=== PATIENT | female | born 1945 | race Caucasian/White ===

== ENCOUNTER 2019-03-09 14:08 | Inpatient (IN) | payer OTHER ==
[~2019-03-09] VITALS: Ht 162.6 cm; Wt 91.7 kg
[2019-03-09 14:33] VITALS: BP_SYST 125
--- NOTE | 2019-03-09 14:35 | NUR ---
Placed in room 08 . Placed on cardiac rehabilitation specialist, blood pressure machine and pulse oximeter. To gown for exam. Side rails up.
--- NOTE | 2019-03-09 14:36 | NUR ---
Pt brought by family members,A&Ox4, pt states she felt disoriented this am, intact ROM , intact speech, no facial drop or blurred visin noted, skin pink and warm, cap refill <3, respirations even and unlabored, pt follows commands.
--- NOTE | 2019-03-09 14:40 | NUR ---
Dr Lopez at bedside examining patient.
[2019-03-09] MEDS ORDERED: ACETAMINOPHEN 500 MG TABLET PO ONE (16:00)
[2019-03-09 16:01] LABS: HEMATOCRIT 31.3 % (36-48); HEMOGLOBIN 10.5 g/dL (12.0-16.0); MEAN CORPUSCULAR HEMOGLOBIN 33 pg (27-31); MEAN CORPUSCULAR HGB CONC 34 % (32-36); MEAN CORPUSCULAR VOLUME 97 fL (79.0-98.0); PLATELET COUNT (AUTO) 166 K/uL (130-430); RED BLOOD CELL COUNT(AUTO) 3.23 MIL/uL (4.2-6.2); RED CELL DISTRIBUTION WIDTH 12.7 % (9.0-15.0); WHITE BLOOD COUNT (AUTO) 9.9 K/uL (4.8-10.8)
[2019-03-09 16:06] LABS: ANION GAP 11 (5-15); CALCIUM 8.8 mg/dL (8.4-11.0); CHLORIDE 102 mmol/L (98-107); CREATININE 1.83 mg/dL (0.55-1.30); GLUCOSE 112 mg/dL (70-99); POTASSIUM 4.3 mmol/L (3.5-5.1); SODIUM SERUM 135 mmol/L (136-145); UREA NITROGEN, BLOOD 43 mg/dL (8-21)
[2019-03-09 16:08] LABS: PROTHROMBIN TIME 9.9 SECS (9.5-12.5)
[2019-03-09 16:09] LABS: BILIRUBIN,URINE NEGATIVE (NEGATIVE); BLOOD, URINE NEGATIVE (NEGATIVE); CLARITY/URINE CLEAR (CLEAR); COLOR,URINE YELLOW (YELLOW); GLUCOSE,URINE NEGATIVE (NEGATIVE); KETONES,URINE NEGATIVE (NEGATIVE); LEUKOCYTE ESTERASE ,URINE TRACE (NEGATIVE); NITRITE, URINE NEGATIVE (NEGATIVE); PH,URINE 5.5 (5.0-8.0); PROTEIN URINE NEGATIVE (NEGATIVE); UROBILINOGEN,URINE 0.2 (0.2-1.0)
[2019-03-09 16:11] LABS: ALANINE AMINOTRANSFERASE 22 U/L (12-78); ALBUMIN 3.4 g/dL (3.4-4.8); ASPARTATE AMINOTRANSFERASE 41 U/L (10-37); TOTAL BILIRUBIN 0.4 mg/dL (0.0-1.0)
--- NOTE | 2019-03-09 16:15 | NUR ---
Pt off the unit for CT
[2019-03-09 16:21] LABS: BAND % (MANUAL) 6 % (0-6); BASOPHILS % (MANUAL) 0 % (0-2); EOSINOPHILS % (MANUAL) 0 % (0-7); LYMPHOCYTES % (MANUAL) 8 % (20-46); MONOCYTES % (MANUAL) 3 % (0-11)
[2019-03-09 16:24] LABS: BACTERIA,URINE FEW /HPF (None Seen); MUCUS,URINE None Seen /LPF (None Seen); RBC,URINE NONE SEEN /HPF (0-3)
--- NOTE | 2019-03-09 17:05 | NUR ---
Pt returned from CT on stable condition.
--- NOTE | 2019-03-09 17:12 | NUR ---
Pt A&Ox4, VSS, respirations even and unlabored, cap refill <3.
[2019-03-09] MEDS ORDERED: NACL 0.9% 1,000 ML IV ONE (17:45)
[2019-03-09] MEDS ORDERED: cefTRIAXone 1 GM IVPB PREMIX 50 ML IV ONE (17:45)
[2019-03-09] MEDS ORDERED: AMLO5TAB4 PO (18:20)
[2019-03-09] MEDS ORDERED: FURO-150 PO (18:20)
[2019-03-09] MEDS ORDERED: ACET325T53 PO (18:20)
[2019-03-09] MEDS ORDERED: TEMA30CA5 PO (18:20)
[2019-03-09] MEDS ORDERED: LOSA25TA3 PO (18:20)
[2019-03-09] MEDS ORDERED: CLON0.5T12 PO (18:20)
[2019-03-09] MEDS ORDERED: ASPI-1153 PO (18:20)
[2019-03-09] MEDS ORDERED: GABA-529 PO (18:20)
[2019-03-09] MEDS ORDERED: PRO20 PO (18:20)
[2019-03-09] MEDS ORDERED: SUCR1TAB78 PO (18:20)
[2019-03-09] MEDS ORDERED: CHOL500013 PO (18:20)
--- NOTE | 2019-03-09 18:20 | NUR ---
Medication reconciliation completed with information provided by patient list. Any prior medication reconciliation on file was reviewed and corrected.
--- NOTE | 2019-03-09 18:50 | NUR ---
Patient will be admitted to care of Dr Parsons . Admitted to Tele unit. Will go to room 132C . Belongings list completed. Summary report printed. Report will be given at bedside.
--- NOTE | 2019-03-09 19:01 | NUR ---
ADMISSION: The patient, MERY SNYDER, 73 y/o, F admitted by dr panda , with the diagnosis of ALOC , AND EARLY UTI , was given written information regarding hospital policies, unit procedures and contact persons.
[2019-03-09 19:09] VITALS: BP_SYST 114
--- NOTE | 2019-03-09 19:52 | NUR ---
INITIAL NOTE AT INITIAL ASSESSMENT, PATIENT IS RESTING IN BED, STABLE, NO SIGNS OF RESPIRATORY DISTRESS. PATIENT VERBALIZES NO PAIN. FAMILY IS AT BEDSIDE. PLAN OF CARE FOR THE EVENING IS COMMUNICATED TO THE PATIENT AND HER FAMILY. CALL LIGHT- TEACH BACK IS SUCCESSFUL. BED IS LOCKED, ALARMED, AND AT THE LOWEST LEVEL. FALL AND SAFETY PRECAUTIONS WILL BE IN PLACE THROUGHOUT THE SHIFT.
[2019-03-09 21:05] VITALS: BP_SYST 114
[2019-03-09] MEDS ORDERED: [UNRECOGNIZED DRUG - CODE] OP (21:20)
[2019-03-09] MEDS ORDERED: PROP10DR2 EACH EYE (21:20)
[2019-03-09] MEDS ORDERED: KCL 20 mEq in 100 mL (PREMIX) 100 ML IV ONE (21:23)
--- NOTE | 2019-03-09 21:50 | NUR ---
NOTE PATIENT IS RESTING IN BED, STABLE, NO SIGNS OF RESPIRATORY DISTRESS. FAMILY IS AT BEDSIDE. CALL LIGHT IS WITHIN REACH. BED IS LOCKED, ALARMED, AND AT THE LOWEST LEVEL.
[2019-03-09] MEDS ORDERED: THIAMINE HCL 100 MG TABLET GT SCH (22:00)
--- NOTE | 2019-03-09 22:00 | NUR ---
DR. SANCHEZ AT BEDSIDE DR. SANCHEZ IS AT BEDSIDE WITH PATIENT AT THIS TIME. MD HAS SEEN PATIENT'S BUG BITES, ORDER FOR ANTI ITCH CREAM GIVEN, ORDER IS READ BACK, VERIFIED, AND WILL BE ENTERED IMMEDIATELY. MD WILL PLACE ALL OTHER ORDERS.
[2019-03-09] MEDS: TEMAZEPAM 15 MG CAPSULE PO PRN (22:43)
--- NOTE | 2019-03-10 | NUR ---
NEW IV NOTE PATIENT'S IV IS NOTED TO BE INFILTRATED, OLD IV IS D/C, TIP INTACT, NO SIGNS OF ACTIVE BLEED. NEW IV IS PLACE ON LEFT FOREARM, 22 GAUGE. PATIENT TOLERATED WELL. 10 MLS NS FLUSHED WITH NO RESISTANCE. PATIENT IS RESTING IN BED, STABLE, NO SIGNS OF RESPIRATORY DISTRESS. CALL LIGHT IS WITHIN REACH. BED IS LOCKED, ALARMED, AND AT THE LOWEST LEVEL.
[2019-03-10] MEDS: KCL 20 mEq in D5/0.45NS 1000mL 1,000 ML IV SCH ×3 (00:57→23:47)
--- NOTE | 2019-03-10 01:45 | NUR ---
PATIENT ASSISTED TO BEDSIDE COMMODE PATIENT IS ASSISTED TO BEDSIDE COMMODE AT THIS TIME PER HER REQUEST SINCE SHE DOES NOT WANT TO USE THE BEDPAN. PATIENT WAS UNSTEADY AND NEEDED FULL ASSIST ALTHOUGH COMMODE WAS PLACED RIGHT NEXT TO HER BED; SAFETY EDUCATION IS GIVEN TO USE BEDPAN FOR NEXT TIME.
[2019-03-10 03:35] VITALS: BP_SYST 131
--- NOTE | 2019-03-10 03:44 | NUR ---
NOTE PATIENT IS SLEEPING, STABLE, NO SIGNS OF RESPIRATORY DISTRESS. CALL LIGHT IS WITHIN REACH. BED IS LOCKED, ALARMED, AND AT THE LOWEST LEVEL.
--- NOTE | 2019-03-10 05:12 | NUR ---
NOTE PATIENT IS SLEEPING, STABLE, NO SIGNS OF RESPIRATORY DISTRESS. CALL LIGHT IS WITHIN REACH. BED IS LOCKED, ALARMED, AND AT THE LOWEST LEVEL.
[2019-03-10 06:13] LABS: BASOPHILS % (AUTO) 0.3 % (0.0-2.0); EOSINOPHILS # (AUTO) 0.1 K/uL (0.0-0.4); EOSINOPHILS % (AUTO) 1.4 % (0.0-4.0); HEMOGLOBIN 10.5 g/dL (12.0-16.0); LYMPHOCYTES # (AUTO) 1.2 K/uL (1.0-5.5); LYMPHOCYTES % (AUTO) 11.5 % (20.5-51.5); MEAN CORPUSCULAR HEMOGLOBIN 32 pg (27-31); MEAN CORPUSCULAR HGB CONC 33 % (32-36); MEAN CORPUSCULAR VOLUME 97 fL (79.0-98.0); MONOCYTES # (AUTO) 0.7 K/uL (0.0-1.0); MONOCYTES % (AUTO) 6.7 % (1.7-9.3); NEUTROPHILS # (AUTO) 8.2 K/uL (1.8-7.7); NEUTROPHILS % (AUTO) 80.1 % (40.0-70.0); PLATELET COUNT (AUTO) 164 K/uL (130-430); RED CELL DISTRIBUTION WIDTH 12.5 % (9.0-15.0); WHITE BLOOD COUNT (AUTO) 10.3 K/uL (4.8-10.8)
[2019-03-10 06:35] LABS: ANION GAP 7 (5-15); CALCIUM 9.1 mg/dL (8.4-11.0); CHLORIDE 106 mmol/L (98-107); CREATININE 1.38 mg/dL (0.55-1.30); GLUCOSE 140 mg/dL (70-99); POTASSIUM 3.9 mmol/L (3.5-5.1); SODIUM SERUM 136 mmol/L (136-145); UREA NITROGEN, BLOOD 39 mg/dL (8-21)
--- NOTE | 2019-03-10 06:52 | NUR ---
CLOSING NOTE PATIENT SLEPT WELL THROUGHOUT THE SHIFT, SHE HAD MINIMAL CONFUSION NOTED. AT THIS TIME, PATIENT IS RESTING IN BED, STABLE, NO SIGNS OF RESPIRATORY DISTRESS. CALL LIGHT IS WITHIN REACH. BED IS LOCKED, ALARMED, AND AT THE LOWEST LEVEL. FALL, AND SAFETY PRECAUTIONS HAVE BEEN IN PLACE THROUGHOUT THE SHIFT. WILL CONTINUE TO MONITOR UNTIL SHIFT REPORT IS GIVEN AT BEDSIDE TO AM NURSE.
--- NOTE | 2019-03-10 07:12 | NUR ---
received report from donny nurse at the bedside. patient awake x 4. has iv access on the #22 with iv fluids infusing on well. lungs bilaterally clear. abdomen soft and non distended. bed in low position. call lights within reach. has bedside commode, but refused to have bedpan at this time. informed patient to call for help. both arms are ecchymotic. no open wound noted. will continue to monitor patients status.
[2019-03-10 07:33] VITALS: BP_SYST 121
[2019-03-10] MEDS: FLUoxetine HCL 20 MG CAPSULE (PROzac) PO SCH (08:37)
[2019-03-10] MEDS: THIAMINE HCL 100 MG TABLET PO SCH (08:37)
[2019-03-10] MEDS: ASPIRIN 81 MG TABLET(ECOTRIN) PO SCH (08:37)
[2019-03-10] MEDS: FUROSEMIDE 20 MG TABLET PO SCH (08:37)
[2019-03-10] MEDS: GABAPENTIN 300 MG CAPSULE PO SCH ×2 (08:37→20:25)
[2019-03-10] MEDS: amLODIPine BESYLATE 5 MG TABLET PO SCH (08:38)
[2019-03-10] MEDS ORDERED: [UNRECOGNIZED DRUG - CODE] OP (08:48)
[2019-03-10] MEDS ORDERED: PROP10DR2 EACH EYE (08:48)
[2019-03-10] MEDS ORDERED: ACETAMINOPHEN 325 MG TABLET PO SCH (09:00)
--- NOTE | 2019-03-10 09:00 | NUR ---
medication due given. with water. made comfortable.
--- NOTE | 2019-03-10 09:30 | NUR ---
lotrisone cream applied to both arms and legs.
[2019-03-10] MEDS: CLOTRIMAZOLE/BETAMET DIPROP 15 GM TUBE TP SCH ×2 (09:50→20:27)
--- NOTE | 2019-03-10 10:00 | NUR ---
watching tv. resting
--- NOTE | 2019-03-10 11:20 | NUR ---
dr panda came and informed to reconciled other medications, said yes. but please follow up.
--- NOTE | 2019-03-10 12:33 | NUR ---
eating lunch and watching tv. no pain nor acute distress noted.
[2019-03-10 12:35] VITALS: BP_SYST 137
--- NOTE | 2019-03-10 13:30 | NUR ---
pa son came. awaiting for the eye drops from pharmacy.
--- NOTE | 2019-03-10 15:46 | NUR ---
the whole family are at the bedside. patient stable. no distress noted.
[2019-03-10] MEDS: [UNRECOGNIZED DRUG - OTHER] OP SCH ×2 (16:25→20:28)
--- NOTE | 2019-03-10 16:29 | NUR ---
systane eye drops given to the patient via right eye 3 drops and 1 drop to the left eye.
[2019-03-10 17:10] VITALS: BP_SYST 147
[2019-03-10] MEDS: SUCRALFATE 1 GM TABLET PO SCH (17:13)
[2019-03-10] MEDS: cefTRIAXone 1 GM in D5W 50 ML IV SCH (17:14)
[2019-03-10] MEDS ORDERED: LOSARTAN POTASSIUM 25 MG TABLET PO SCH (18:00)
--- NOTE | 2019-03-10 18:00 | NUR ---
removed traffic monitor specialist as ordered and downgraded to medical surgical.
--- NOTE | 2019-03-10 19:14 | NUR ---
endorsed to incoming nite nurse.
--- NOTE | 2019-03-10 19:49 | NUR ---
INITIAL NOTE AT INITIAL ASSESSMENT, PATIENT IS RESTING IN BED, STABLE, NO SIGNS OF RESPIRATORY DISTRESS. PATIENT VERBALIZES NO PAIN. PLAN OF CARE FOR THE EVENING IS COMMUNICATED TO THE PATIENT. CALL LIGHT- TEACH BACK IS SUCCESSFUL. BED IS LOCKED, ALARMED, AND AT THE LOWEST LEVEL. FALL AND SAFETY PRECAUTIONS WILL BE IN PLACE THROUGHOUT THE SHIFT.
[2019-03-10 19:50] VITALS: BP_SYST 150
[2019-03-10] MEDS: ACETAMINOPHEN 325 MG TABLET PO PRN (20:26)
[2019-03-10] MEDS: TEMAZEPAM 15 MG CAPSULE PO PRN (20:56)
[2019-03-10] MEDS ORDERED: STYE OP SCH (21:00)
--- NOTE | 2019-03-10 21:46 | NUR ---
NEW IV NOTE PATIENT'S IV IS NOTED TO BE INFILTRATED, OLD IV IS D/C, TIP INTACT, NO SIGNS OF ACTIVE BLEED. NEW IV IS PLACE ON RIGHT FOREARM, 22 GAUGE. PATIENT TOLERATED WELL. 10 MLS NS FLUSHED WITH NO RESISTANCE. PATIENT IS RESTING IN BED, STABLE, NO SIGNS OF RESPIRATORY DISTRESS. CALL LIGHT IS WITHIN REACH. BED IS LOCKED, ALARMED, AND AT THE LOWEST LEVEL.
--- NOTE | 2019-03-10 23:45 | NUR ---
NOTE PATIENT IS SLEEPING, STABLE, NO SIGNS OF RESPIRATORY DISTRESS. CALL LIGHT IS WITHIN REACH. BED IS LOCKED, ALARMED, AND AT THE LOWEST LEVEL.
[2019-03-11 01:10] VITALS: BP_SYST 137
--- NOTE | 2019-03-11 01:42 | NUR ---
NOTE PATIENT IS SLEEPING, STABLE, NO SIGNS OF RESPIRATORY DISTRESS. CALL LIGHT IS WITHIN REACH. BED IS LOCKED, ALARMED, AND AT THE LOWEST LEVEL.
--- NOTE | 2019-03-11 03:40 | NUR ---
NOTE PATIENT IS SLEEPING, STABLE, NO SIGNS OF RESPIRATORY DISTRESS. CALL LIGHT IS WITHIN REACH. BED IS LOCKED, ALARMED, AND AT THE LOWEST LEVEL.
--- NOTE | 2019-03-11 04:55 | NUR ---
NOTE PATIENT IS SLEEPING, STABLE, NO SIGNS OF RESPIRATORY DISTRESS. CALL LIGHT IS WITHIN REACH. BED IS LOCKED, ALARMED, AND AT THE LOWEST LEVEL.
[2019-03-11] MEDS: ACETAMINOPHEN 325 MG TABLET PO PRN (05:56)
[2019-03-11] MEDS: SUCRALFATE 1 GM TABLET PO SCH ×2 (05:59→11:59)
--- NOTE | 2019-03-11 06:10 | NUR ---
CLOSING NOTE PRN MEDICATION GIVEN FOR PATIENT'S COMPLAINT OF HEADACHE. PATIENT SLEPT WELL THROUGHOUT THE SHIFT, HER GAIT IS STILL WEAK BUT IS BETTER COMPARED TO THE NIGHT BEFORE. MINIMAL CONFUSION NOTED. AT THIS TIME, PATIENT IS RESTING IN BED, STABLE, NO SIGNS OF RESPIRATORY DISTRESS. CALL LIGHT IS WITHIN REACH. BED IS LOCKED, ALARMED, AND AT THE LOWEST LEVEL. FALL, AND SAFETY PRECAUTIONS HAVE BEEN IN PLACE THROUGHOUT THE SHIFT. WILL CONTINUE TO MONITOR UNTIL SHIFT REPORT IS GIVEN AT BEDSIDE TO AM NURSE.
--- NOTE | 2019-03-11 08:30 | NUR ---
Neuro Denies any headache able to take a nap after Tylenol was taken earlier, alert/oriented x4 , on continues IV hydration , provided bedside commode for safety issue., discussed lab result and IV antibiotic indication/side effect verbalized understanding.
[2019-03-11 08:36] VITALS: BP_SYST 128
[2019-03-11] MEDS: FLUoxetine HCL 20 MG CAPSULE (PROzac) PO SCH (08:39)
[2019-03-11] MEDS: ASPIRIN 81 MG TABLET(ECOTRIN) PO SCH (08:39)
[2019-03-11] MEDS: THIAMINE HCL 100 MG TABLET PO SCH (08:39)
[2019-03-11] MEDS: cefTRIAXone 1 GM in D5W 50 ML IV SCH (08:39)
[2019-03-11] MEDS: FUROSEMIDE 20 MG TABLET PO SCH (08:40)
[2019-03-11] MEDS: GABAPENTIN 300 MG CAPSULE PO SCH (08:40)
[2019-03-11] MEDS: amLODIPine BESYLATE 5 MG TABLET PO SCH (08:40)
[2019-03-11] MEDS: CLOTRIMAZOLE/BETAMET DIPROP 15 GM TUBE TP SCH (08:42)
[2019-03-11] MEDS: [UNRECOGNIZED DRUG - OTHER] OP SCH (10:08)
--- NOTE | 2019-03-11 11:05 | NUR ---
Mobility Alertr/oriented x 4 out of bed to bathroom with stanby assist little bit of shaking able to ambulate with out dizziness, fall safety precaution initiated, needs attended.
--- NOTE | 2019-03-11 11:48 | NUR ---
Nutrition Update Ede Scale 17 noted. Pt admitted for ALOC. Diet: regular BMI: 34.7 kg/m2 RD to follow per nutrition care standards. Addendum: 03/11/19 at [address] CORRECTION: Pt admitted for ALOC, possible UTI.
[2019-03-11 12:38] VITALS: BP_SYST 129
[2019-03-11 13:35] VITALS: BP_SYST 129
--- NOTE | 2019-03-11 13:50 | NUR ---
D/C Patient Patient given medication reconciliation form and D/C instructions. Exit Care provided. Patient verbalized understanding. MD discussed with patient the results and treatment provided. Ambulatory with steady gait for discharge to home. Patient in stable condition, ID band removed. IV catheter removed, intact and dressing applied, no active bleeding. Patient educated on SAFETY/FALL PRECAUTION, HOME MEDICATION. All belongings sent with patient.
--- NOTE | 2019-03-15 14:44 | NUR ---
Discharge Follow Up Phone Call MANAGER QA phoned patient, , and left a voicemail message. Patient returned the call. She is doing fine. She has made a follow up appointment with her PCP. She has no questions or concerns.
== END 2019-03-11 14:08 | disposition home or self-care (01) | DRG 682 ==
LOC: SED 14:08 → STU 17:59 → SMU 03-10 12:51
PROVIDERS: ADMIT Family Medicine; ATTEND Family Medicine
DX: N17.0 Acute kidney failure with tubular necrosis (principal); G93.41 Metabolic encephalopathy; N39.0 Urinary tract infection, site not specified; D64.9 Anemia, unspecified; E86.0 Dehydration; I10 Essential (primary) hypertension; F32.9 Major depressive disorder, single episode, unspecified; M19.90 Unspecified osteoarthritis, unspecified site; Z90.49 Acquired absence of other specified parts of digestive tract; Z79.899 Other long term (current) drug therapy; Z88.8 Allergy status to other drugs, medicaments and biological substances
CPT/HCPCS: 36415; 70450-TC; 71045; 71250-TC; 80048; 80053; 81000-TC; 83605; 83735-TC; 84484; 85007; 85025; 85027; 85610-TC; 87040-TC; 93005; 96361; 96365; 97112-GP; 99285; G0378; J0696; J3480; J7030; J7060

== ENCOUNTER 2022-09-11 09:25 | Emergency (ER) | payer OTHER, BC ==
[~2022-09-11] VITALS: Ht 162.6 cm; Wt 68.0 kg
[~2022-09-11 09:25] MED LIST: ACET325T53 PO; AMLO5TAB4 PO; ASPI-1393 PO; CHOL500013 PO; FURO-150 PO; LOSA25TA3 PO; PRO20 PO; PROP10DR2 EACH EYE; SUCR1TAB2 PO; TEMA30CA5 PO; [UNRECOGNIZED DRUG - CODE] OP
--- NOTE | 2022-09-11 09:42 | NUR ---
Patient to ER bed 7 to gown for evaluation. Side rails up. Report given to ABNER.
[2022-09-11 09:43] VITALS: BP_SYST 171
--- NOTE | 2022-09-11 09:50 | NUR ---
Pt bib bls from home CC SOB with accessory muscles used. Pt saturation 98% room air. Pt notes past 3 days not feeling well enough to get out of bed and take BP medication. 180/91.
--- NOTE | 2022-09-11 09:51 | NUR ---
[place] 90BS PT AAOX3 . PT IS [place].
--- NOTE | 2022-09-11 10:35 | NUR ---
Pt notes anxiety and requesting something to relieve nervousness. History of anxiety. Provided reassurance of stable vital signs and will notify MD.
--- NOTE | 2022-09-11 11:40 | NUR ---
pt family Anup Nieves [phone] contact with condition change and discharge.
--- NOTE | 2022-09-11 12:10 | NUR ---
ER at bedside examining patient.
[2022-09-11] MEDS ORDERED: MORPHINE 2 MG/ML INJ. SYRINGE IM ONE (12:30)
[2022-09-11] MEDS ORDERED: DIPHTH,PERTUSS(ACELL),TET VAC 0.5 ML VIAL (Tdap) I.M. ONE (12:30)
[2022-09-11] MEDS ORDERED: LORazepam 1 MG TABLET PO ONE (12:30)
[2022-09-11] MEDS ORDERED: LOSARTAN POTASSIUM 50 MG TABLET (COZAAR) PO ONE (12:30)
[2022-09-11] MEDS ORDERED: BACITRACIN 1 GM OINT TP ONE (12:30)
[2022-09-11 12:52] LABS: ANION GAP 14 (5-15); CALCIUM 9.7 mg/dL (8.4-11.0); CHLORIDE 106 mmol/L (98-107); CREATININE 1.37 mg/dL (0.55-1.30); GLUCOSE 72 mg/dL (70-99); UREA NITROGEN, BLOOD 20 mg/dL (8-21)
[2022-09-11 12:56] LABS: BASOPHILS % (AUTO) 0.5 % (0.0-2.0); EOSINOPHILS # (AUTO) 0.1 K/uL (0.0-0.4); HEMATOCRIT 31.9 % (36-48); HEMOGLOBIN 10.8 g/dL (12.0-16.0); LYMPHOCYTES # (AUTO) 1.3 K/uL (1.0-5.5); LYMPHOCYTES % (AUTO) 20.1 % (20.5-51.5); MEAN CORPUSCULAR HEMOGLOBIN 31 pg (27-31); MEAN CORPUSCULAR HGB CONC 34 % (32-36); MEAN CORPUSCULAR VOLUME 91 fL (79.0-98.0); MONOCYTES # (AUTO) 0.6 K/uL (0.0-1.0); NEUTROPHILS # (AUTO) 4.6 K/uL (1.8-7.7); NEUTROPHILS % (AUTO) 69.4 % (40.0-70.0); PLATELET COUNT (AUTO) 224 K/uL (130-430); RED CELL DISTRIBUTION WIDTH 14.5 % (9.0-15.0); WHITE BLOOD COUNT (AUTO) 6.7 K/uL (4.8-10.8)
[2022-09-11 13:00] LABS: ALANINE AMINOTRANSFERASE 12 U/L (12-78); ALBUMIN 3.5 g/dL (3.4-4.8); ASPARTATE AMINOTRANSFERASE 18 U/L (10-37); TOTAL BILIRUBIN 0.5 mg/dL (0.0-1.0)
--- NOTE | 2022-09-11 13:35 | NUR ---
PT ADMINISTERED IM MORPHINE 2 MG PER MD ORDER, PT REQUESTING MORE PAIN MEDICATION BEFORE ASSESSMENT :"I AM USED TO MORE" PT IN NO SIGNS OF DISTRESS, PT SHOWS NO GRIMACING, PT IS LAYING IN BED SPEAKING FULL SENTENCES.
--- NOTE | 2022-09-11 14:16 | NUR ---
Removed several old dressings from left arm and right elbow. Irrigated wounds with 0.9% N.S., cleaned, dried & applied Bacitracin. Applied non-adherent, curlex, and turbular dressings on both arms. Pt. received 2mLs of Morphine prior to wound irrigation but is constantly asking for more. No pain noted.
[2022-09-11] MEDS ORDERED: BACI15OI13 TP (14:44)
--- NOTE | 2022-09-11 15:41 | NUR ---
Patient given written and verbal discharge instructions and verbalizes understanding. ER MD discussed with patient the results and treatment provided. Patient in stable condition. ID arm band removed. Rx of bacitracin given. Patient educated on pain management and to follow up with PMD. Opportunity for questions provided and answered. Medication side effect fact sheet provided.
[2022-09-11 15:42] VITALS: BP_SYST 150
--- NOTE | 2022-09-11 16:31 | NUR ---
Note vicentabrian in EDM - 09/11/22 at 1632 by DIMITRIOS Patient given written and verbal discharge instructions and verbalizes understanding. ER discussed with patient the results and treatment provided. Patient in stable condition. ID arm band removed. Rx of bacitracin given. Patient educated on pain management and to follow up with PMD. Opportunity for questions provided and answered. Medication side effect fact sheet provided.
== END 2022-09-11 15:41 | disposition home or self-care (01) ==
LOC: SED 09:25
DX: R06.02 Shortness of breath (principal); F41.9 Anxiety disorder, unspecified; N17.9 Acute kidney failure, unspecified; Z88.6 Allergy status to analgesic agent; Z88.8 Allergy status to other drugs, medicaments and biological substances; Z79.899 Other long term (current) drug therapy
CPT/HCPCS: 99285; 71045; 80053; 82962; 85025; 84484; 36415; 93005; 90715; 96372; 90471; J2270